=== PATIENT | female | born 1995 | race Caucasian/White ===

== ENCOUNTER 2017-01-26 13:22 | Emergency (ER) | payer SELFPAY ==
[2017-01-26 16:20] LABS: UA SPECIFIC GRAVITY 1.015 (1.005-1.035); microscopic required? YES; urine erythrocyte 2+ (NEGATIVE)
[2017-01-26 17:39] VITALS: BP 115/82
== END 2017-01-26 17:39 | disposition home or self-care (01) ==
LOC: ED 13:22
PROVIDERS: Emergency Medicine
DX: N39.0 Urinary tract infection, site not specified (principal); N76.0 Acute vaginitis
CPT/HCPCS: 87804

== ENCOUNTER 2017-04-09 13:57 | Emergency (ER) | payer MEDICAID ==
[2017-04-09 15:12] VITALS: BP 130/82
== END 2017-04-09 15:12 | disposition home or self-care (01) ==
LOC: ED 13:57
DX: J02.9 Acute pharyngitis, unspecified (principal)
CPT/HCPCS: J0690

== ENCOUNTER 2017-08-09 16:26 | Emergency (ER) | payer MEDICAID ==
[2017-08-09 19:44] VITALS: BP 120/65
== END 2017-08-09 19:45 | disposition home or self-care (01) ==
LOC: ED 16:26
DX: Z48.01 Encounter for change or removal of surgical wound dressing (principal); L30.1 Dyshidrosis [pompholyx]; R07.9 Chest pain, unspecified

== ENCOUNTER 2017-08-14 13:34 | Emergency (ER) | payer MEDICAID ==
[2017-08-14 15:20] VITALS: BP 121/79
== END 2017-08-14 15:20 | disposition home or self-care (01) ==
LOC: ED 13:34
DX: Z48.01 Encounter for change or removal of surgical wound dressing (principal)

== ENCOUNTER 2018-03-17 23:22 | Emergency (ER) | payer OTHER ==
[~2018-03-17] VITALS: Ht 172.7 cm; Wt 94.8 kg
[2018-03-17 23:29] VITALS: Ht 172.7 cm; Wt 94.8 kg
[2018-03-18 00:07] VITALS: BP 133/87
== END 2018-03-18 00:07 | disposition home or self-care (01) ==
LOC: ED 23:22
DX: L05.91 Pilonidal cyst without abscess (principal)

== ENCOUNTER 2018-04-01 11:00 | Emergency (ER) | payer OTHER ==
[~2018-04-01] VITALS: Ht 175.3 cm; Wt 94.8 kg
[2018-04-01 11:11] VITALS: BP 127/74; Ht 175.3 cm; Wt 94.8 kg
== END 2018-04-01 12:29 | disposition home or self-care (01) ==
LOC: ED 11:00
DX: S23.3XXA Sprain of ligaments of thoracic spine, initial encounter (principal); V89.2XXA Person injured in unspecified motor-vehicle accident, traffic, initial encounter; Y93.89 Activity, other specified; Y92.89 Other specified places as the place of occurrence of the external cause; Y99.8 Other external cause status

== ENCOUNTER 2018-05-27 05:25 | Emergency (ER) | payer OTHER ==
[~2018-05-27] VITALS: Ht 175.3 cm; Wt 96.2 kg
[2018-05-27 05:48] VITALS: Ht 175.3 cm; Wt 96.2 kg
[2018-05-27 06:50] VITALS: BP 143/77
== END 2018-05-27 07:25 | disposition home or self-care (01) ==
LOC: ED 05:25
DX: J01.90 Acute sinusitis, unspecified (principal)
CPT/HCPCS: J1885

== ENCOUNTER 2020-07-18 12:22 | Emergency (ER) | payer OTHER ==
[~2020-07-18] VITALS: Ht 172.7 cm; Wt 86.2 kg
[2020-07-18 12:29] VITALS: Ht 172.7 cm; Wt 86.2 kg
[2020-07-18 14:55] VITALS: BP 125/69
== END 2020-07-18 14:55 | disposition home or self-care (01) ==
LOC: ED 12:22
DX: S63.91XA Sprain of unspecified part of right wrist and hand, initial encounter (principal); X50.0XXA Overexertion from strenuous movement or load, initial encounter; X50.9XXA Other and unspecified overexertion or strenuous movements or postures, initial encounter; Y93.89 Activity, other specified; Y92.89 Other specified places as the place of occurrence of the external cause; Y99.8 Other external cause status; Z98.890 Other specified postprocedural states
CPT/HCPCS: Q0092